=== PATIENT | female | born 1985 | race Two or more races ===

== ENCOUNTER 2017-05-12 11:08 | Emergency (ER) | payer MEDICAID ==
[~2017-05-12] VITALS: Ht 154.9 cm; Wt 93.0 kg
[~2017-05-12 11:08] MED LIST: IBUPROFEN600 MG PO; MACROBID100 MG ORAL; PENICILLIN V P500 MG PO
[2017-05-12 11:37] VITALS: BP 129/86
[2017-05-12] MEDS ORDERED: Tetanus/Diptheria/Pertussis Vaccine 0.5ml Syr IM ONE (12:30)
[2017-05-12] MEDS ORDERED: Lidocaine 1% Plain 30 ml INJ ONE (12:30)
[2017-05-12] MEDS ORDERED: Bacitracin Oint UD TOPIC ONE (12:30)
[2017-05-12] MEDS ORDERED: IBUPROFEN600 MG ORAL (12:56)
[2017-05-12] MEDS ORDERED: BACITRACIN15 GM TOPIC (12:56)
[2017-05-12 13:05] VITALS: BP 129/86
--- NOTE | 2017-05-12 14:16 | Emergency Room Report ---
History of Present Illness General Chief Complaint: Upper Extremity Injury Source: Patient Present Illness [facility] The patient is a 32-year-old female presenting for laceration to the right arm. She states that she was moving a metal object at home which slipped and cut the wrist prior to arrival. Pain is described as a 7/10 dull ache and does not radiate. Worse with touch. She is unsure of last tetanus shot. She denies any other injury or symptoms Allergies: Coded Allergies: No Known Allergies (Unverified , 10/28/13) Patient History Past Medical History: see triage record Pertinent Family History: none Last Menstrual Period: 05/08/17 Now: No Reviewed Nursing Documentation: PMH: Agreed, PSxH: Agreed Nursing Documentation-PMH Past Medical History: No Stated History Review of Systems All Other Systems: negative except mentioned in HPI Physical Exam Vital Signs Date Time Temp Pulse Resp B/P Pulse Ox O2 Delivery O2 Flow Rate FiO2 05/12/17 11:22 98.1 72 20 129/86 99 Room Air Sp02 EP Interpretation: reviewed, normal General Appearance: no apparent distress, alert, GCS 15, non-toxic Head: normocephalic, atraumatic Eyes: bilateral eye PERRL, bilateral eye normal inspection ENT: hearing grossly normal, normal pharynx, no angioedema, normal voice Musculoskeletal: normal range of motion, tender - TTP over the laceration Neurologic: alert, oriented x3, responsive, motor strength/tone normal, sensory intact, speech normal Psychiatric: judgement/insight normal, memory normal, mood/affect normal, no suicidal/homicidal ideation Skin: no rash, normal turgor, laceration - 5cm linear laceration to R distal medial forearm Lymphatic: no adenopathy Procedures Laceration/Wound Repair Laceration/Wound Repair : Consent: Verbal Wound Location: upper extremity - R forearm Wound's Depth, Shape: superficial, linear Wound Length (cm): 5 Wound Explored: clean Irrigated w/ Saline (ccs): 100 Betadine Prep?: Yes Anesthesia: 1% Lidocaine Volume Anesthetic (ccs): 5 Wound Debrided: minimal Wound Repaired With: sutures Suture Size/Type: 4:0, proline Number of Sutures: 6 Layer Closure?: No Sterile Dressing Applied?: Yes Splint Applied?: No Sling Applied?: No Patient Tolerated: Well Complications: None Medical Decision Making PA Attestation Dr. Benton is my supervising physician. Patient management was discussed with my supervising physician Diagnostic Impression: Primary Impression: Laceration ER Course The patient is a 32-year-old female presenting for laceration to the right arm Ddx considered include but not limited to fracture, tendon/ligament injury, avulsion, nerve damage PE: NAD 5cm linear laceration to the R distal ulnar forearm. Full AROM of wrist and fingers. Minimal bleeding. The wound was irrigated with normal saline and cleaned with betadine. A 27g needle was used to administer 5mL of lidocaine w.o epi for local anaesthesia. 6 sutures were placed with 4-0 Prolene. The wound was well approximated and the patient tolerated the procedure well. The wound was then cleaned and bacitracin was applied. Suture instructions given as well as ER precautions. Last Vital Signs Date Time Temp Pulse Resp B/P Pulse Ox O2 Delivery O2 Flow Rate FiO2 05/12/17 13:05 98.1 72 20 129/86 99 Room Air Status: improved Disposition: HOME, SELF-CARE Condition: Improved Scripts Bacitracin (Bacitracin) 28.4 Gm Oint...g. 1 APPLIC TOPIC THREE TIMES A DAY, #28 GM Prov: DAVI MÉNDEZ 05/12/17 Ibuprofen* (MOTRIN*) 600 Mg Tablet 600 MG ORAL Q8H Y for For Pain, #30 TAB 0 Refills Prov: DAVI MÉNDEZ 05/12/17 Patient Instructions: Laceration Care, Adult Additional Instructions: I discussed my findings with the patient. All questions and concerns have been answered. Treatment and medication compliance have been addressed. I advised the patient that they need to follow up with PMD in 5-7 days for wound check and suture removal. If you are unable to see PMD, return to the ED in 5-7 days. Return to ED if pain remains or worsens, you notice discharge from the wound, the wound continues to bleed, the suture/s fall out, you notice a fever or chills, or for any reason. Patient is advised to keep the wound clean and apply an antibacterial ointment. Patient verbalized understanding of discharge instructions. DAVI MÉNDEZ May 12, 2017 14:16
== END 2017-05-12 13:12 | disposition home or self-care (01) ==
LOC: EMR 11:46
DX: S51.811A Laceration without foreign body of right forearm, initial encounter (principal); W26.8XXA Contact with other sharp object(s), not elsewhere classified, initial encounter; Y92.89 Other specified places as the place of occurrence of the external cause; Z23 Encounter for immunization
CPT/HCPCS: 12002; 90471; 90715; 96372; 99284; J2001; Z7502

== ENCOUNTER 2017-11-12 17:57 | Emergency (ER) | payer MEDICAID ==
[~2017-11-12] VITALS: Ht 162.6 cm; Wt 90.7 kg
[~2017-11-12 17:57] MED LIST changes: +BACITRACIN15 GM TOPIC; +IBUPROFEN600 MG ORAL
[2017-11-12 18:15] VITALS: BP 118/86
[2017-11-12] MEDS ORDERED: Ketorolac 60mg Inj IM ONE (18:45)
[2017-11-12] MEDS ORDERED: IBUPROFEN600 MG ORAL (20:03)
[2017-11-12] MEDS ORDERED: PROAIR HFA8.5 GM INH (20:03)
[2017-11-12] MEDS ORDERED: PROMETHAZINE-D118 ML ORAL (20:03)
[2017-11-12 20:06] VITALS: BP 118/86
--- NOTE | 2017-11-12 20:57 | Emergency Room Report ---
History of Present Illness General Chief Complaint: Flu Like Symptoms Source: Patient Present Illness HPI The patient is a 32-year-old female presenting for 10 days of fever, chills, fatigue, and cough. She was seen by her primary doctor approximately one week prior and given prescription for amoxicillin but states that this has not been helping. Pain is an 8/10 dull ache to the mid chest and occurs with coughing. She denies any known sick contacts or recent travel. She denies other symptoms including hemoptysis, vomiting, rash, diarrhea Allergies: Coded Allergies: No Known Allergies (Unverified , 10/28/13) Patient History Past Medical History: see triage record Pertinent Family History: none Last Menstrual Period: 3 days ago Reviewed Nursing Documentation: PMH: Agreed, PSxH: Agreed Nursing Documentation-PMH Past Medical History: No Stated History Review of Systems All Other Systems: negative except mentioned in HPI Physical Exam Vital Signs Date Time Temp Pulse Resp B/P (MAP) Pulse Ox O2 Delivery O2 Flow Rate FiO2 11/12/17 18:05 99.3 100 18 118/86 97 Room Air Sp02 EP Interpretation: reviewed, normal General Appearance: no apparent distress, alert, GCS 15, non-toxic Head: normocephalic, atraumatic Eyes: bilateral eye normal inspection, bilateral eye PERRL ENT: hearing grossly normal, normal pharynx, no angioedema, normal voice Neck: full range of motion, supple/symm/no masses Respiratory: normal inspection, no accessory muscle use, wheezing - bilat lower lobes Cardiovascular #1: regular rate, rhythm, no edema Musculoskeletal: back normal, gait/station normal, normal range of motion, non- tender Neurologic: alert, oriented x3, responsive, motor strength/tone normal, sensory intact, speech normal Psychiatric: judgement/insight normal, memory normal, mood/affect normal, no suicidal/homicidal ideation Skin: normal color, no rash, warm/dry, well hydrated Lymphatic: no adenopathy Medical Decision Making PA Attestation Dr. Feldman is my supervising physician. Patient management was discussed with my supervising physician Diagnostic Impression: Primary Impression: Acute bronchitis Qualified Codes: J20.9 - Acute bronchitis, unspecified ER Course The patient is a 32-year-old female presenting for 10 days of fever, chills, fatigue, and cough Differential diagnosis include but not limited to pharyngitis, sinusitis, AOM, bronchitis, PNA PE: afebrile. No tachypnea. No apparent distress. No TTP over maxillary or frontal sinuses. Lungs: bilat lower lobe wheezing. No accessory muscle use. No resp distress Heart: RRR, no abnormal heart sounds Ears: external auditory canal clear. Non erythematous. Bilat TM intact. Cone of light present bilat. No bulging of TM. No serous fluid seen. no nasal D/C No cervical lymphad No tonsillar exudate. Uvula midline.Oropharynx non erythematous CXR unremarkable The patient is given IM Toradol and is feeling much better The patient will be discharged home with a prescription for motrin, albuterol, cough medication ER precautions given Microbiology Date/Time Source Procedure Growth Status 11/12/17 19:19 Nasal Nares Influenza Types A,B Antigen (LETY) - Final Complete Lab Results Impression flu neg Chest X-Ray Diagnostic Results Chest X-Ray Diagnostic Results : Chest X-Ray Ordered: Yes # of Views/Limited/Complete: 1 View Indication: Other - cough EP Interpretation: Yes ANJU Xray: Interpretation reviewed, by supervising MD, and agrees with findings. Interpretation: no consolidation, no effusion, no pneumothorax, no acute cardiopulmonary disease Impression: No acute disease Electronically Signed by: oTro Méndez PA-C Last Vital Signs Date Time Temp Pulse Resp B/P (MAP) Pulse Ox O2 Delivery O2 Flow Rate FiO2 11/12/17 20:06 99.4 98 18 118/86 97 Room Air Status: improved Disposition: HOME, SELF-CARE Condition: Improved Scripts Albuterol Sulfate* (PROAIR HFA*) 8.5 Gm Hfa.aer.ad 2 PUFFS INH Q6H, #8.5 GM 0 Refills Prov: TERZIAN,TORO P.A. 11/12/17 D-Methorphan Hb/Prometh Hcl* (PROMETHAZINE-DM SYRUP*) 118 Ml Syrup 5 ML ORAL Q6H Y for For Cough, #118 ML 0 Refills Prov: TERZIAN,TORO P.A. 11/12/17 Ibuprofen* (MOTRIN*) 600 Mg Tablet 600 MG ORAL Q8H Y for For Pain, #30 TAB 0 Refills Prov: TERZIAN,TORO P.A. 11/12/17 Referrals: [facility],REFERRING (PCP) Patient Instructions: Acute Bronchitis Additional Instructions: I discussed my findings with the patient. All questions and concerns have been answered. Treatment and medication compliance have been addressed. I advised the patient that they need to follow up with PMD in 3-5 days. Return to ED if pain remains or worsens, cough worsens or remains, you notice blood in your sputum, you notice wheezing, you experience a fever, or if needed for any reason. Patient verbalized understanding of discharge instructions. TORO MÉNDEZ Nov 12, 2017 20:57
--- NOTE | 2017-11-13 09:33 | Diagnostic Imaging Report ---
Indication: Reason For Exam: COUGH Technique: XRAY Chest 1v Comparison: None. Findings: The cardiomediastinal silhouette is normal. The lungs are clear. There is no evidence of pleural fluid. The bones are unremarkable. Impression: Normal chest.
== END 2017-11-12 20:06 | disposition home or self-care (01) ==
LOC: EMR 18:19
DX: J20.9 Acute bronchitis, unspecified (principal)
CPT/HCPCS: 71045; 86710; 96372; 99284

== ENCOUNTER 2018-07-28 16:49 | Emergency (ER) | payer MEDICAID ==
[~2018-07-28] VITALS: Ht 172.7 cm; Wt 83.9 kg
[~2018-07-28 16:49] MED LIST changes: +PROAIR HFA8.5 GM INH; +PROMETHAZINE-D118 ML ORAL
[2018-07-28 17:00] VITALS: BP 140/81
--- NOTE | 2018-07-28 17:21 | Emergency Room Report ---
History of Present Illness General Chief Complaint: Abdominal Pain Source: Patient, EMS Present Illness HPI 33-year-old female with no medical problems, no surgeries, comes ER with complaints of lower abdominal twisting type intermittent pain in the suprapubic area, nonradiating severe, no relief with Tylenol, reports started just 3-4 hours ago, she tried to eat after started to see if it helped, but no relief was obtained. She denies urinary complaints gynecologic complaints, fevers, vomiting, nausea, diarrhea, constipation. She reports she's never had pain like this before and can't think of anything that triggered it. Allergies: Coded Allergies: No Known Allergies (Unverified , 10/28/13) Patient History Past Medical History: see triage record Now: No Reviewed Nursing Documentation: PMH: Agreed; PSxH: Agreed Nursing Documentation-PMH Past Medical History: No Stated History Review of Systems All Other Systems: negative except mentioned in HPI Physical Exam Vital Signs Date Time Temp Pulse Resp B/P (MAP) Pulse Ox O2 Delivery O2 Flow Rate FiO2 07/28/18 16:47 98.6 91 16 117/80 99 Room Air 98.6 Sp02 EP Interpretation: reviewed, normal General Appearance: alert, non-toxic, mild distress Head: normocephalic Eyes: bilateral eye normal inspection, bilateral eye PERRL, bilateral eye EOMI ENT: normal ENT inspection, hearing grossly normal, normal pharynx, no angioedema, normal voice, moist mucus membranes Neck: normal inspection, full range of motion, supple, supple/symm/no masses Respiratory: chest non-tender, lungs clear, normal breath sounds, chest symmetrical, palpation of chest normal Cardiovascular #1: normal peripheral pulses, regular rate, rhythm Cardiovascular #2: 2+ radial (R), 2+ radial (L) Gastrointestinal: normal inspection, non tender, soft, no mass, no guarding, no rebound Rectal: deferred Genitourinary: normal inspection, no CVA tenderness Musculoskeletal: back normal, gait/station normal, normal range of motion, non- tender, no calf tenderness Neurologic: alert, responsive, bailer tenders supervisor III-XII nml as tested, motor strength/tone normal, sensory intact, speech normal Psychiatric: judgement/insight normal, memory normal, mood/affect normal, anxious Skin: normal color, no rash, warm/dry, normal turgor Lymphatic: no adenopathy Medical Decision Making Diagnostic Impression: Primary Impression: Abdominal pain ER Course Patient with normal workup, she reports she is on her cycle, 4 days and, after 1 dose of morphine she was monitored for many hours, and repeat abdomen exam was still soft and nontender and she also had much improvement of her subjective pain. There was a significant delay in her ED stay due to no ultrasound techs being available and no one informing us in the ED of this. However, this allowed me to monitor patient well after she received morphine and she still well-appearing. Will discharge diagnosis dysmenorrhea, discharge with ibuprofen CT/MRI/US Diagnostic Results CT/MRI/US Diagnostic Results : Imaging Test Ordered: ct abd pelvis with iv contrast Impression per Dr. Terrell Arguello, mild basilar atelectas, normal appendix, no free air, no free fluid, no sbo Last Vital Signs Date Time Temp Pulse Resp B/P (MAP) Pulse Ox O2 Delivery O2 Flow Rate FiO2 07/28/18 17:00 99.2 96 16 140/81 100 Room Air 99.2 Status: improved Disposition: HOME, SELF-CARE Condition: Stable SHAMA THORNTON M.D Jul 28, 2018 17:21
[2018-07-28] MEDS ORDERED: Morphine Sulfate 4mg/ml Inj (IV USE ONLY) IVP ONE (17:30)
[2018-07-28 17:51] LABS: ANION GAP 11 mmol/L (5-15); BLOOD UREA NITROGEN 12 mg/dL (7-18); CALCIUM 9.7 MG/DL (8.5-10.1); CARBON DIOXIDE 25 MMOL/L (21-32); CHLORIDE 103 MMOL/L (98-107); CREATININE 0.7 MG/DL (0.55-1.30); POTASSIUM 3.8 MMOL/L (3.5-5.1); SODIUM 139 MMOL/L (136-145)
[2018-07-28 17:54] LABS: ALANINE AMINOTRANSFERASE 19 U/L (12-78); ALBUMIN 3.5 G/DL (3.4-5.0); ALBUMIN/GLOBULIN RATIO 0.8 (1.0-2.7); ALKALINE PHOSPHATASE 84 U/L (46-116); ASPARTATE AMINO TRANSFERASE 15 U/L (15-37); BILIRUBIN,TOTAL 0.3 MG/DL (0.2-1.0)
[2018-07-28 18:03] LABS: BASOPHILS % (AUTO) 0.9 % (0.0-2.0); HEMOGLOBIN 13.1 G/DL (12.0-16.0); LYMPHOCYTES % (AUTO) 19.5 % (20.0-45.0); MEAN CORPUSCULAR VOLUME 88 FL (80-99); MONOCYTES % (AUTO) 4.3 % (1.0-10.0); NEUTROPHILS % (AUTO) 75.2 % (45.0-75.0); PLATELET COUNT 369 K/UL (150-450); RED BLOOD COUNT 4.54 M/UL (4.20-5.40); RED CELL DISTRIBUTION WIDTH 12.8 % (11.6-14.8); WHITE BLOOD COUNT 7.9 K/UL (4.8-10.8)
[2018-07-28 18:56] LABS: APPEARANCE,URINE CLEAR; BILIRUBIN, URINE NEGATIVE (NEGATIVE); COLOR,URINE PALE YELLOW; GLUCOSE, URINE (UA) NEGATIVE (NEGATIVE); KETONES,URINE NEGATIVE (NEGATIVE); LEUKOCYTE ESTERASE ,URINE NEGATIVE (NEGATIVE); NITRITE,URINE NEGATIVE (NEGATIVE); PH,URINE 7 (4.5-8.0); PROTEIN,URINE NEGATIVE (NEGATIVE); UROBILINOGEN,URINE NORMAL MG/DL (0.0-1.0)
[2018-07-28 18:59] VITALS: BP 131/86
[2018-07-28] MEDS ORDERED: Isovue-300 100ml vial INJ PRN (19:30)
[2018-07-28] MEDS ORDERED: IBUPROFEN600 MG ORAL (20:52)
[2018-07-28 20:55] VITALS: BP 131/86
--- NOTE | 2018-07-29 09:01 | Diagnostic Imaging Report ---
Clinical Indication: Abdominal pain times one day Technique: No oral contrast utilized, per emergency room physician request IV administration nonionic contrast. Venous phase spiral acquisition obtained through the abdomen and pelvis. Multiplanar reconstructions were generated. Total dose length product 993.79 mGycm. CTDIvol(s) 18.16 mGy. Dose reduction achieved using automated exposure control Comparison: none Findings: Normal appendix. There is colonic diverticulosis. No evidence of diverticulitis. No small bowel distention. No free or loculated intraperitoneal gas or fluid. There is a tiny fat-containing umbilical hernia. Distal esophagus, stomach, duodenum are all unremarkable. The gallbladder is distended. There are no stones and no gallbladder wall thickening. The liver, bile ducts, pancreas, spleen, adrenals, kidneys are all unremarkable. No retroperitoneal or mesenteric mass or adenopathy. No pelvic mass or adenopathy. The included lung bases demonstrate minimal scarring and/or atelectasis. The bones are unremarkable except for degenerative spondylosis changes. Impression: No acute abnormality Colonic diverticulosis. No evidence of diverticulitis Incidental finding of minimal basilar pulmonary parenchymal scarring and/or atelectasis, mild degenerative spondylosis This agrees with the preliminary interpretation provided overnight by Dr. Arguello The CT scanner at [facility] is accredited by the [employer] and the scans are performed using protocols designed to limit radiation exposure to as low as reasonably achievable to attain images of sufficient resolution adequate for diagnostic evaluation.
== END 2018-07-28 20:55 | disposition home or self-care (01) ==
LOC: EDBD 16:49 → EMR 18:30
DX: R10.30 Lower abdominal pain, unspecified (principal); K57.30 Diverticulosis of large intestine without perforation or abscess without bleeding
CPT/HCPCS: 36415; 74177; 80053; 81003; 81025; 83690; 85025; 96361; 96374; 99284; J2270; Q9967